=== PATIENT | female | born 1995 | race Two or more races ===

== ENCOUNTER 2024-08-07 02:58 | Inpatient (IN) | payer MEDICAID ==
[~2024-08-07] VITALS: Ht 157.5 cm; Wt 77.6 kg
[2024-08-07 05:00] VITALS: BP 108/72; TEMP 97.9; O2SAT 97
[2024-08-07] MEDS ORDERED: MAGNESIUM HYDROXIDE 30 ML UDC PO PRN (05:00)
[2024-08-07] MEDS ORDERED: ZOLPIDEM TARTRATE 5 MG TABLET PO PRN (05:00)
[2024-08-07] MEDS ORDERED: ONDANSETRON HCL/PF 4 MG/2 ML VIAL IVP PRN (05:00)
[2024-08-07] MEDS ORDERED: Z GUARD REMEDY 4 OZ OINT TP PRN (05:00)
[2024-08-07] MEDS ORDERED: ACETAMINOPHEN 325 MG TABLET PO PRN (05:00)
[2024-08-07] MEDS ORDERED: MAG HYDROX/AL HYDROX/SIMETH 30 ML UDC PO PRN (05:00)
[2024-08-07] MEDS: IV NS 0.9% 1,000 ML IV PRN (05:42)
[2024-08-07] MEDS: HYDROMORPHONE 1 MG/1 ML DISP.SYRIN IV PRN (07:03)
[2024-08-07 07:33] LABS: BASOPHILS % (AUTO) 0.3 % (0.0-2.0); EOSINOPHILS # (AUTO) 0.3 K/uL (0.0-0.7); EOSINOPHILS % (AUTO) 3.4 % (0.0-6.0); HEMATOCRIT 34 % (33-45); HEMOGLOBIN 10.9 g/dL (11.5-14.8); MEAN CORPUSCULAR HEMOGLOBIN 23 PG (26.0-33.0); MEAN CORPUSCULAR HGB CONC 32 g/dl (31.0-36.0); MEAN CORPUSCULAR VOLUME 73 fL (82-100); MONOCYTES # (AUTO) 0.8 K/uL (0.1-1.30); MONOCYTES % (AUTO) 7.5 % (2.0-12.0); NEUTROPHILS # (AUTO) 7.2 K/uL (1.8-8.9); NEUTROPHILS % (AUTO) 69.8 % (43.0-81.0); PLATELET COUNT (AUTO) 445 K/uL (150-450); RED BLOOD CELL COUNT(AUTO) 4.73 MIL/uL (4.0-5.2); WHITE BLOOD COUNT (AUTO) 10.3 K/uL (4.3-11.0)
[2024-08-07 07:52] LABS: LACTIC ACID 1.5 mmol/L (0.4-2.0)
[2024-08-07 08:00] VITALS: BP 109/65; TEMP 98.1; O2SAT 95
[2024-08-07] MEDS ORDERED: METR500T PO (08:09)
[2024-08-07] MEDS ORDERED: RIFA150C3 PO (08:09)
[2024-08-07] MEDS ORDERED: SULF1TAB47 PO (08:09)
[2024-08-07 08:10] LABS: CALCIUM, SERUM 8.7 mg/dL (8.5-10.1); CREATININE 0.6 mg/dL (0.6-1.3); POTASSIUM 3.9 mmol/L (3.5-5.1)
[2024-08-07] MEDS: MEROPENEM 500 MG in IV NS 0.9% 50 ML IV SCH (08:26)
[2024-08-07] MEDS: VANCOMYCIN 1 GM in IV D5W 250 ML IV SCH (09:33)
[2024-08-07 11:04] LABS: EOSINOPHILS % (MANUAL) 1 % (0-4); LYMPHOCYTES % (MANUAL) 16 % (16-48); MONOCYTES % (MANUAL) 8 % (0-11.0); NEUTROPHILS % (MANUAL) 75 (42-76)
[2024-08-07 11:05] LABS: ANISOCYTOSIS 1+; PLATELET ESTIMATE ADEQUATE
[2024-08-07 16:00] VITALS: BP 112/82; TEMP 98.8; O2SAT 98
[2024-08-07 20:05] VITALS: BP 129/76; TEMP 98.6; O2SAT 100
[2024-08-07] MEDS ORDERED: predniSONE 50 MG TABLET PO SCH (20:30)
[2024-08-08] MEDS: HYDROCODONE/APAP 10/325MG TABLET PO PRN (01:07)
[2024-08-08 06:31] LABS: BASOPHILS % (AUTO) 0.2 % (0.0-2.0); EOSINOPHILS # (AUTO) 0.3 K/uL (0.0-0.7); EOSINOPHILS % (AUTO) 2.8 % (0.0-6.0); HEMATOCRIT 34 % (33-45); HEMOGLOBIN 10.8 g/dL (11.5-14.8); LYMPHOCYTES # (AUTO) 1.8 K/uL (0.8-4.8); LYMPHOCYTES % (AUTO) 16.5 % (20.0-44.0); MEAN CORPUSCULAR HEMOGLOBIN 23 PG (26.0-33.0); MEAN CORPUSCULAR HGB CONC 32 g/dl (31.0-36.0); MEAN CORPUSCULAR VOLUME 73 fL (82-100); MONOCYTES # (AUTO) 0.8 K/uL (0.1-1.30); MONOCYTES % (AUTO) 7.7 % (2.0-12.0); NEUTROPHILS # (AUTO) 7.9 K/uL (1.8-8.9); NEUTROPHILS % (AUTO) 72.8 % (43.0-81.0); PLATELET COUNT (AUTO) 419 K/uL (150-450); RED BLOOD CELL COUNT(AUTO) 4.66 MIL/uL (4.0-5.2); RED CELL DISTRIBUTION WIDTH 19.7 % (11.5-15.0); WHITE BLOOD COUNT (AUTO) 10.8 K/uL (4.3-11.0)
[2024-08-08 06:44] LABS: CALCIUM, SERUM 8.7 mg/dL (8.5-10.1); CREATININE 0.6 mg/dL (0.6-1.3); POTASSIUM 4.1 mmol/L (3.5-5.1)
[2024-08-08 07:30] VITALS: BP 113/74; TEMP 98.2; O2SAT 96
[2024-08-08 08:01] LABS: EOSINOPHILS % (MANUAL) 2 % (0-4); LYMPHOCYTES % (MANUAL) 17 % (16-48); MONOCYTES % (MANUAL) 6 % (0-11.0); NEUTROPHILS % (MANUAL) 75 (42-76); PLATELET ESTIMATE ADEQUATE
[2024-08-08 08:02] LABS: ANISOCYTOSIS 1+
[2024-08-08] MEDS: predniSONE 20 MG TABLET PO SCH (08:08)
[2024-08-08 16:00] VITALS: BP 124/77; TEMP 98.6; O2SAT 94
[2024-08-08] MEDS: VANCOMYCIN HCL 1.25 GM in IV D5W 250 ML IV SCH (16:00)
[2024-08-08 20:22] VITALS: BP 112/73; TEMP 97.9; O2SAT 95
[2024-08-09] MEDS: diphenhydrAMINE HCL 50 MG/ML VIAL IV ONE (00:41)
[2024-08-09 07:06] LABS: CALCIUM, SERUM 8.7 mg/dL (8.5-10.1); CREATININE 0.5 mg/dL (0.6-1.3); POTASSIUM 3.5 mmol/L (3.5-5.1)
[2024-08-09 08:36] VITALS: BP 117/71; TEMP 98.2; O2SAT 100
[2024-08-09] MEDS ORDERED: diphenhydrAMINE HCL 50 MG/ML VIAL IV ONE (12:30)
[2024-08-09 16:13] VITALS: BP 122/78; TEMP 98.2; O2SAT 100
[2024-08-09 20:00] VITALS: BP 120/73; TEMP 97.7; O2SAT 98
[2024-08-10] MEDS: diphenhydrAMINE HCL 50 MG/ML VIAL IV ONE (01:07)
[2024-08-10 07:58] LABS: PREGNANCY TEST URINE QUAL NEGATIVE (NEGATIVE)
[2024-08-10 08:00] VITALS: BP 107/70; TEMP 97.9; O2SAT 99
[2024-08-10 08:23] LABS: CALCIUM, SERUM 8.8 mg/dL (8.5-10.1); CREATININE 0.5 mg/dL (0.6-1.3); POTASSIUM 3.7 mmol/L (3.5-5.1)
[2024-08-10] MEDS: predniSONE 20 MG TABLET PO SCH (09:14)
[2024-08-10] MEDS ORDERED: VANCOMYCIN HCL 1.25 GM in IV D5W 250 ML IV SCH (12:00)
[2024-08-10] MEDS ORDERED: CIPR500T5 PO (12:16)
[2024-08-10] MEDS ORDERED: HYDR-3972 PO (12:16)
[2024-08-10] MEDS ORDERED: PRED20TA PO (12:16)
[2024-08-10] MEDS ORDERED: DOXY-326 PO (12:16)
[2024-08-10] MEDS ORDERED: METH4TAB17 PO (12:16)
== END 2024-08-10 16:34 | disposition home or self-care (01) | DRG 385 ==
LOC: MED 04:26
PROVIDERS: ADMIT Nurse Practitioner Family; ATTEND Nurse Practitioner Family
DX: L73.2 Hidradenitis suppurativa (principal); E87.1 Hypo-osmolality and hyponatremia; L02.214 Cutaneous abscess of groin; D50.9 Iron deficiency anemia, unspecified; E28.2 Polycystic ovarian syndrome; Z86.19 Personal history of other infectious and parasitic diseases; E66.9 Obesity, unspecified; Z68.30 Body mass index [BMI] 30.0-30.9, adult; Z88.5 Allergy status to narcotic agent; L03.314 Cellulitis of groin
CPT/HCPCS: 36415; 80048-TC; 80202-TC; 83605-TC; 83735-TC; 84703-TC; 85025-TC; 87081-TC; A4223; A6253; A6403; G0378; J1171; J1200; J2185; J3370; J7030; J7060